=== PATIENT | male | born 1990 | race Caucasian/White ===

== ENCOUNTER 2020-06-29 20:23 | Emergency (ER) | payer SELFPAY ==
--- NOTE | 2020-06-29 20:26 | XRR_ITS ---
PROCEDURE INFORMATION: Exam: XR Chest, 2 Views Exam date and time: 06/29/2020 8:44 PM Age: 30 years old Clinical indication: Cough and shortness of breath TECHNIQUE: Imaging protocol: XR of the chest Views: 2 views. COMPARISON: No relevant prior studies available. FINDINGS: Lungs: Unremarkable. No consolidation. Pleural spaces: Unremarkable. No pleural effusion. No pneumothorax. Heart/Mediastinum: Unremarkable. No cardiomegaly. Bones/joints: Unremarkable. XR/XR chest 2V* [id number] IMPRESSION: No acute findings.
[2020-06-29 20:36] VITALS: BP 143/91; PULSE 96; RESP 18; TEMP 36.6; O2SAT 96; BMI 39.5
--- NOTE | 2020-06-29 21:43 | ED_ITS ---
HPI - COVID General: Chief Complaint: COVID symptoms Stated Complaint: SOB, COUGHING Time Seen by Provider: 06/29/20 21:36 Triage information: Has fever, cough or shortness of breath . No known COVID + exposure last 14 days History of Present Illness: HPI Narrative: Patient is a 30-year-old male comes to the ED with productive cough and shortness of breath. Symptoms started approximately 1 week ago. Says whenever he is up and moving around his lungs feel little congested and he coughs up green sputum. He also states he has felt little short of breath and wheezing for the past week as well. Denies any known Covid exposure. Patient denies any past medical history of asthma. Denies fever, chills, chest pain, abdominal pain, nausea/vomiting, bladder or bowel symptoms. COVID 19 common symptoms: positive productive cough and dyspnea; negative fever(s), chills, non-productive cough, fatigue, headache(s), throat pain, nasal congestion, nausea, vomiting or diarrhea COVID 19 other sytmptoms: negative chest pain COVID Results: No Data to Display Review of Systems Const: Denies: fever(s), chills or fatigue Eyes: Denies: change in vision or eye discomfort ENMT: Denies: throat pain, odynophagia, nasal discharge or nasal congestion Card: Denies: chest pain, palpitations, edema, swelling of feet/ankles, dyspnea on exertion or orthopnea Resp: Reports: dyspnea, productive cough, wheezing and change in phlegm color (Green); Denies: non-productive cough GI: Denies: abdominal pain, nausea, vomiting, diarrhea, constipation or hematochezia : Denies: flank pain, difficulty urinating, dysuria or hematuria Musc: Denies: neck pain, back pain or extremity swelling Skin/Breast: Denies: rash or new lesions Neuro: Denies: headache(s), numbness in extremities or weakness in extremities PFSH ED PFSH: Medical History Alcohol abuse Suicidal ideation Social History Current gender identity: Male Physical Exam Const: COMMON NORMALS: no acute distress, patient oriented x3, healthy appearing and alert GENERAL APPEARANCE: cooperative and comfortable HENMT: COMMON NORMALS: normocephalic HEAD & SCALP: normocephalic MOUTH: Normal oral and palatal mucosa present THROAT: posterior oropharynx normal and uvula midline Neck/C-Spine: COMMON NORMALS: supple GENERAL: Yes normal visual inspection Resp: COMMON NORMALS: normal respiratory effort, No retractions and No use of accessory muscles EFFORT & INSPECTION: Yes able to speak in complete sentences, No tachypneic, No respiratory distress and No labored AUSCULTATION: wheezes (bilaterally throughout during expiratory breathing) expiratory wheezes and throughout Cardio: COMMON NORMALS: regular rate, regular rhythm, S1 normal heart sound present, S2 normal heart sound present, No gallops present (Cardio), No clicks present (Cardio), No murmurs present (Cardio) and Peripheral pulses 2+ throughout RATE: regular rate RHYTHM: regular rhythm HEART SOUNDS: S1 normal heart sound present and S2 normal heart sound present PERIPHERAL PULSES: Peripheral pulses 2+ throughout GI: COMMON NORMALS: Normal to inspection, nondistended, normoactive bowel sounds present, Soft to palpation, non-tender and no masses PALPATION: Yes Soft to palpation : COMMON NORMALS: Yes no CVA tenderness BLADDER/KIDNEY EXAM: Yes no CVA tenderness Back/Pelvis: COMMON NORMALS: no CVA tenderness Extremity: COMMON NORMALS: normal to inspection Neuro: COMMON NORMALS: patient oriented x3 and moves all extremities SENSORIUM/ORIENTATION: Yes alert Skin: GENERAL SKIN EXAM: dry skin Course Vital Signs: Vital signs: Vital Signs Temperature 97.9 F 06/29/20 20:36 Pulse Rate 90 06/29/20 23:12 Respiratory Rate 17 06/29/20 23:04 Blood Pressure 149/77 06/29/20 22:49 Pulse Oximetry 97 06/29/20 23:04 MDM - COVID MDM Narrative: Medical decision making narrative: Patient is a 30-year-old male comes to the ED with productive cough and shortness of breath. He has also been having some wheezing for the past week as well. There is no concern for COVID-19 and patient has had no recent exposures. Denies any fever or chills. Patient appears in no acute respiratory distress. Exam findings showed bilateral wheezing throughout lungs. Chest x-ray shows no acute lung findings. Patient was given a dose of azithromycin and Solu-Medrol while here in the ED. He was also given a DuoNeb breathing treatment before discharge. Patient diagnosed with bronchitis with acute wheezing and discharged with a prescription for azithromycin, Medrol Dosepak and albuterol inhaler. Follow-up with PCP in 7 to 10 days for reevaluation. Return to ED precautions given. Patient understood and agreed with plan. Imaging Data: CXR: Attestation: I personally reviewed and interpreted this imaging study as follows: Radiologist's impression: [address] [address] XRay Report Signed Patient: Gary Mccoy Unit #: [id number] : 1990 Age/Sex: 30 / M ADM Date: 06/29/20 Loc: ER Room/Bed: Attending Dr: Ordering Provider/Ordering MD: Rhoda De Souza MD Date of Service: 06/29/20 Procedure(s): XR chest 2V* [id number] Accession Number(s): [id number] Report Number: [id number] PROCEDURE INFORMATION: Exam: XR Chest, 2 Views Exam date and time: 06/29/2020 8:44 PM Age: 30 years old Clinical indication: Cough and shortness of breath TECHNIQUE: Imaging protocol: XR of the chest Views: 2 views. COMPARISON: No relevant prior studies available. FINDINGS: Lungs: Unremarkable. No consolidation. Pleural spaces: Unremarkable. No pleural effusion. No pneumothorax. Heart/Mediastinum: Unremarkable. No cardiomegaly. Bones/joints: Unremarkable. XR/XR chest 2V* [id number] IMPRESSION: No acute findings. Dictated By: Jose Alejandro Ramirez Signed By: Jose Alejandro Ramirez Signed Date/Time: 06/29/202099 DD/ 58 COVID Results: No Data to Display Discharge Plan Discharge Patient Disposition: Home Clinical Impression: Bronchitis with acute wheezing Condition: Stable Prescriptions: New azithromycin 250 mg tablet 250 mg PO DAILY 4 Days Qty: 4 RF: 0 Medrol (Neeraj) 4 mg tablets,dose pack See Rx Instructions .ROUTE .COMPLEX Qty: 21 RF: 0 albuterol sulfate 90 mcg/actuation HFA aerosol inhaler 2 inh inhalation Q6H PRN (Reason: shortness of breath or wheezing) Qty: 8.5 RF: 0 Tessalon Perles 100 mg capsule 100 mg PO TID PRN (Reason: cough) Qty: 20 RF: 0 No Action bupropion HCl 75 mg tablet 75 mg PO QAM 30 Days Qty: 30 RF: 3 Discharge Orders: Discharge ED (Routine); Ordered 06/29/20 Ordered By: Josestio Dsouza Discharge Diet: Regular Discharge Activity: Increase activity as tolerated Patient Instructions: Bronchitis (Acute) - Adult Activity Restrictions/Additional Instructions: Follow-up with medical provider as directed in 7 to 10 days for reevaluation. Take medications as prescribed. Return to the ER or your medical provider if condition worsens. Please read and understand discharge instructions. If any questions, please ask. Coding Level of Care Code ED [employer] Professor for Jay Fwd Exam Comprehensive
[2020-06-29 22:06] VITALS: BP 140/74; PULSE 79; RESP 18; O2SAT 93
[2020-06-29 22:08] VITALS: BP 138/81; PULSE 95; RESP 18; O2SAT 95
[2020-06-29] MEDS: azithromycin 250 mg Tablet 500 MG PO (22:25)
[2020-06-29 22:49] VITALS: BP 149/77; PULSE 75; RESP 18; O2SAT 95
[2020-06-29] MEDS: ipratropium-albuterol 3 mL Neb 6 ML INHALATION (23:03)
[2020-06-29 23:04] VITALS: PULSE 87; RESP 17; O2SAT 97
[2020-06-29 23:12] VITALS: PULSE 90
== END 2020-06-29 23:21 | disposition home or self-care (01) ==
PROVIDERS: Emergency Provider Physician Assistant
DX: J40 Bronchitis, not specified as acute or chronic (principal)
CPT/HCPCS: 71046; 94640; 96372; 99283; J2930; Q0144

== ENCOUNTER → 2020-07-18 12:41 | Outpatient (BNVA) | payer OTHER, SELFPAY | PROVIDERS: Visit Provider Psychiatry & Neurology Psychiatry | DX: F33.2 Major depressive disorder, recurrent severe without psychotic features (principal) | CPT/HCPCS: 80061; 83036 ==

== ENCOUNTER → 2022-10-12 10:54 | Outpatient (BNVA) | payer SELFPAY ==
[2020-07-20 14:39] VITALS: BP 126/75; BMI 40.1
== END ==
PROVIDERS: Visit Provider Family Medicine
DX: R52 Pain, unspecified (principal)
CPT/HCPCS: 87426

== ENCOUNTER → 2022-12-28 16:44 | Outpatient (BNVA) | payer SELFPAY ==
[2020-07-20 14:39] VITALS: BP 126/75; BMI 40.1
== END ==
PROVIDERS: Visit Provider Nurse Practitioner
DX: R05.9 Cough, unspecified (principal); B34.9 Viral infection, unspecified
CPT/HCPCS: 87426